=== PATIENT | female | born 1995 | race Caucasian/White ===

== ENCOUNTER 2021-10-19 12:47 | Day surgery (SDC) | payer OTHER ==
[2021-10-19 13:13] VITALS: BMI 27.2
== END 2021-10-19 15:15 | disposition home or self-care (01) ==
LOC: CSHLD/OP 12:47
PROVIDERS: ATTEND Family Medicine
DX: Z36.83 Encounter for fetal screening for congenital cardiac abnormalities (principal); O36.8130 Decreased fetal movements, third trimester, not applicable or unspecified; Z3A.35 35 weeks gestation of pregnancy
CPT/HCPCS: 76819; 99282